=== PATIENT | male | born 1935 | race Caucasian/White ===

== ENCOUNTER 2017-08-18 14:52 | Emergency (ER) | payer OTHER, BC ==
[~2017-08-18] VITALS: Ht 175.3 cm; Wt 92.3 kg
[~2017-08-18 14:52] MED LIST: ASPIRIN81 M1 PO; CIPROFLOXACIN500 M1 PO; Cipro PO; ENDOCET 5-3251 EACH PO; HYDROCHLOROTHIA25 MG PO; HYTRIN10 MG PO; POTASSIUM CITR10 MEQ PO; PRAVACHOL80 MG PO; PRINIVIL10 MG PO; Roxicet,Percocet 5/3 PO; SYNTHROID150 MCG PO; VITAMIN D31000 UNI2 PO
[2017-08-18 17:13] VITALS: BP 135/71
== END 2017-08-18 17:26 | disposition home or self-care (01) ==
LOC: EME 14:52
PROC: 0T9B70Z Drainage of Bladder with Drainage Device, Via Natural or Artificial Opening (ICD-10-PCS; principal; 2017-08-18)
DX: R33.9 Retention of urine, unspecified (principal); Z85.46 Personal history of malignant neoplasm of prostate; Z98.890 Other specified postprocedural states; I10 Essential (primary) hypertension; E78.5 Hyperlipidemia, unspecified; Z98.61 Coronary angioplasty status; Z92.3 Personal history of irradiation; Z95.5 Presence of coronary angioplasty implant and graft; Z88.0 Allergy status to penicillin; Z87.891 Personal history of nicotine dependence; Z87.442 Personal history of urinary calculi
CPT/HCPCS: 99281; 99284